=== PATIENT | female | born 1965 | race Caucasian/White ===

== ENCOUNTER → 2023-03-09 | Outpatient (CLI) | payer OTHER ==
[2023-03-11 13:09] LABS: HPV 16 Negative (Negative); HPV 18 Negative (Negative); HPV OTHER HR TYPES Negative (Negative)
== END | disposition home or self-care (01) ==
LOC: LAB 13:10 → LAB SHORT 13:10
PROVIDERS: Registered Nurse Community Health
DX: Z12.4 Encounter for screening for malignant neoplasm of cervix (principal); N95.1 Menopausal and female climacteric states
CPT/HCPCS: 84403; 87624; G0145

== ENCOUNTER 2024-03-14 07:03 | Day surgery (SDC) | payer OTHER ==
[~2024-03-14] VITALS: Ht 172.7 cm; Wt 135.3 kg
[~2024-03-14 07:03] MED LIST: COMBIVENT RESPIM4 G1 INH; EUTHYROX175 MCG PO; FLUT1DIS5 INH; Retin-A15 GM TP; SPIR25 PO; Ventolin5 MG/1 ML INH; Vitamin D1000 UNI1 PO; propofoL 50 ML IV ONE
[2024-03-14] MEDS ORDERED: NS 500 ML IV SCH (08:05)
[2024-03-14 08:17] VITALS: BP 119/88
--- NOTE | 2024-03-14 08:19 | NUR ---
Ambulatory in Day Surgery. History, Chart, Medications and Allergies reviewed before start of procedure. Lungs clear T/O to Auscultation. Patient confirms NPO status and agrees with scheduled surgery. Pre-Op teaching done. Pt verbalizes understanding. Patient States Post-Procedure ride home has been arranged.
--- NOTE | 2024-03-14 08:45 | NUR ---
03/14/24 0805 Fady Fregoso History, Chart, Medications and Allergies reviewed before start of procedure. MONITOR INTACT WITH CONTINUOUS PULSE OXIMETRY, CONTINUOUS END TITAL CO2, AND INTERMITTENT BLOOD PRESSURE. 3-LEAD EKG REVIEWED WITH PHYSICIAN PRIOR TO START OF PROCEDURE. O2 VIA POM INTACT THROUGHOUT SEDATION/PROCEDURE.
[2024-03-14] MEDS ORDERED: propofoL 20 ML IV ONE (08:54)
[2024-03-14 09:17] VITALS: BP 122/64
--- NOTE | 2024-03-14 09:17 | NUR ---
PT TO DAY SURGERY STEP DOWN FROM COLONOSCOPY; BEDSIDE REPORT RECEIVED. PT IS AWAKE AND ORIENTED, BUT SLEEPY; ABLE TO MOVE SELF IN BED. PT HAS NO COMPLAINTS AT THIS TIME.
--- NOTE | 2024-03-14 09:28 | NUR ---
PT DECLINES PO FLUIDS Discharge instructions reviewed with patient. Patient verbalizes understanding. Copy given to patient to take home. Patient States Post-Procedure ride home has been arranged.
[2024-03-14 09:31] VITALS: BP 103/91
[2024-03-14 09:42] VITALS: BP 113/90
--- NOTE | 2024-03-14 09:59 | NUR ---
Patient up to Ambulate independently. Gait steady. Discharged via wheelchair to private car for ride home.
== END 2024-03-14 10:00 | disposition home or self-care (01) ==
LOC: ORSCMMR 07:03 → ORD 08:30 → ORSCMMR 08:30
PROVIDERS: Internal Medicine Gastroenterology
PROC: 0DJD8ZZ Inspection of Lower Intestinal Tract, Via Natural or Artificial Opening Endoscopic (ICD-10-PCS; principal; 2024-03-14 08:30)
DX: R19.5 Other fecal abnormalities (principal); K62.5 Hemorrhage of anus and rectum; E66.01 Morbid (severe) obesity due to excess calories; Z68.42 Body mass index [BMI] 45.0-49.9, adult; J44.9 Chronic obstructive pulmonary disease, unspecified; E03.9 Hypothyroidism, unspecified; F17.290 Nicotine dependence, other tobacco product, uncomplicated; Z79.899 Other long term (current) drug therapy
CPT/HCPCS: J2704; J7040

== ENCOUNTER 2024-05-10 06:04 | Day surgery (SDC) | payer OTHER ==
[2024-05-10] VITALS (20 sets, daily range): BP systolic 105–152; BP diastolic 65–107
[~2024-05-10] VITALS: Ht 172.7 cm; Wt 135.0 kg
[~2024-05-10 06:04] MED LIST changes: -EUTHYROX175 MCG PO; +LEVSOD75 PO; +VITAMIN D5000 UNIT PO; -Vitamin D1000 UNI1 PO; -propofoL 50 ML IV ONE
[2024-05-10] MEDS ORDERED: Lactated Ringer's 1,000 ML IV SCH ×2 (06:30→10:30)
[2024-05-10] MEDS ORDERED: CeFAZolin Sodium 3,000 MG in NS 100 ML IV SCH ×2 (06:30→16:00)
--- NOTE | 2024-05-10 06:55 | NUR ---
Ambulatory in Day Surgery History, Chart, Medications and Allergies reviewed before start of procedure. Pre-Op teaching done. Pt verbalizes understanding. Patient States Post-Procedure ride home has been arranged.
[2024-05-10] MEDS ORDERED: propofoL 20 ML IV ONE (07:05)
[2024-05-10] MEDS ORDERED: Dexamethasone Sod Phos 10 MG/ML 1ML VIAL ONE (07:06)
[2024-05-10] MEDS ORDERED: Sugammadex Sodium 200 MG/2ML SDV (100 MG/ML) ONE (07:06)
[2024-05-10] MEDS ORDERED: Ondansetron HCl 2 MG / ML 2ML Vial ONE (07:06)
[2024-05-10] MEDS ORDERED: Rocuronium Bromide 10 MG/ML 5ML Injection IV ONE ×3 (07:06→08:48)
[2024-05-10] MEDS ORDERED: Ketorolac Tromethamine 30mg Vial ONE (07:06)
[2024-05-10] MEDS ORDERED: FentaNYL Citrate 50 MCG/ML 5 ML Injection ONE ×2 (07:06→08:48)
[2024-05-10] MEDS ORDERED: Bupivacaine 0.5% HCl 5 MG/ML 30MLVIAL ONE (07:11)
[2024-05-10] MEDS ORDERED: Glycopyrrolate 0.2 MG/ML 5ML VIAL ONE (08:21)
[2024-05-10] MEDS ORDERED: Mometasone/Formoterol MDI 200/5 mcg 13 GM INH SCH (08:25)
[2024-05-10] MEDS ORDERED: Albuterol 2.5 MG/3 ML VIAL INH PRN (08:30)
[2024-05-10] MEDS ORDERED: Ipratropium/Albuterol SulF 2.5-0.5MG/3 ML Amp INH SCH (08:30)
--- NOTE | 2024-05-10 08:37 | NUR ---
05/10/24 0837 Jhon Jones 3G ANCEF GIVEN BY ANESTHESIA AT 0752
[2024-05-10] MEDS ORDERED: Ondansetron 4 MG TAB PO PRN (10:25)
[2024-05-10] MEDS ORDERED: FLU VACC TS2024-25(6MOS UP)/PF 45 MCG/0.5 ML SYRINGE IM SCH (10:25)
[2024-05-10] MEDS ORDERED: Simethicone 80 MG Chew PO PRN (10:25)
[2024-05-10] MEDS ORDERED: Promethazine HCl 12.5 MG Supp PR PRN (10:25)
[2024-05-10] MEDS ORDERED: OxyCODONE 5 mg/Acetamin 325 mg TABLET PO PRN (10:25)
[2024-05-10] MEDS ORDERED: Promethazine HCl 25 MG Tab PO PRN (10:25)
[2024-05-10] MEDS ORDERED: HYDROmorphone HCl/Pf 1MG SYR IV PRN (10:30)
[2024-05-10] MEDS ORDERED: Ondansetron HCl 2 MG / ML 2ML Vial IV PRN (10:30)
[2024-05-10] MEDS ORDERED: Naloxone HCl 0.4MG / ML 1ML Vial IV PRN (10:30)
[2024-05-10] MEDS ORDERED: HYDROmorphone HCl/Pf 1MG SYR ONE (10:34)
[2024-05-10] MEDS ORDERED: Ketorolac Tromethamine 30mg Vial IV PRN (10:50)
--- NOTE | 2024-05-10 11:40 | NUR ---
Arrival to 210: Patient arrived to 210 post lap assisted hyster. Patient is groggy but wakes easily and is able to ambulate to the bathroom to attempt to void. She is alert and oriented x4. Reports minimal pressure like pain she rates at a 2/10. HRR. VSS. LS CTA, biox is high 90s on RA. BT+, she has 3 abdominal incisions that are glued, CDI. Scant amout of oozing on her ronaldo-pad. Patient denies other needs at this time. Call light in reach, BEN.
--- NOTE | 2024-05-10 16:46 | NUR ---
Update: Dr. De Santiago has been to see the patient. The patient expressed her wishes to leave this evening. She has been OOB to the bathroom for the second and was able to void a small amout with a 22 post void residual. Pain has been well controlled with Percocet. Plan to reevaluate this evening.
[2024-05-10] MEDS ORDERED: Percocet 5-3251 EACH PO (18:01)
[2024-05-10] MEDS ORDERED: PROM25 PO (18:01)
[2024-05-10] MEDS ORDERED: NAPR500 PO (18:02)
--- NOTE | 2024-05-10 18:24 | NUR ---
DISCHARGE: Call and text placed to Dr. De Santiago to provide update reagarding patients status. He gave the ok to DC the criselda jesus. Orders were placed, patient already has follow up appointment and scripts needed at home. IV DC'd patient called her . She verbalizes understanding of discharge instructions. Will take her out via WC when arrives.
[2024-05-11] MEDS ORDERED: Levothyroxine Sodium 0.075 MG Tab PO SCH (06:00)
[2024-05-11] MEDS ORDERED: Cholecalciferol 1000 Unit Tablet (=25MCG) PO SCH (09:00)
[2024-05-11] MEDS ORDERED: Spironolactone 25 MG Tab PO SCH (09:00)
== END 2024-05-10 18:49 | disposition home or self-care (01) ==
LOC: ORSCMMR 06:04 → ORD 07:30 → SURS 11:06 → ORSCMMR 18:49
PROVIDERS: Obstetrics & Gynecology
PROC: 0UT2FZZ Resection of Bilateral Ovaries, Via Natural or Artificial Opening With Percutaneous Endoscopic Assistance (ICD-10-PCS; principal; 2024-05-10 07:30)
PROC: 0UT9FZZ Resection of Uterus, Via Natural or Artificial Opening With Percutaneous Endoscopic Assistance (ICD-10-PCS; principal; 2024-05-10 07:30)
PROC: 0UT7FZZ Resection of Bilateral Fallopian Tubes, Via Natural or Artificial Opening With Percutaneous Endoscopic Assistance (ICD-10-PCS; principal; 2024-05-10 07:30)
DX: N95.0 Postmenopausal bleeding (principal); D25.0 Submucous leiomyoma of uterus; N80.03 Adenomyosis of the uterus; N83.292 Other ovarian cyst, left side; N83.291 Other ovarian cyst, right side; K66.0 Peritoneal adhesions (postprocedural) (postinfection); E66.01 Morbid (severe) obesity due to excess calories; Z68.41 Body mass index [BMI] 40.0-44.9, adult; J44.89 Other specified chronic obstructive pulmonary disease; E03.9 Hypothyroidism, unspecified; Z79.899 Other long term (current) drug therapy
CPT/HCPCS: 86850; 86900; 86901; 88307; A9270; J0690; J1100; J1171; J1885; J2405; J2704; J3010; J7120